=== PATIENT | male | born 1990 | race Caucasian/White ===

== ENCOUNTER 2022-05-11 14:45 | Emergency (ER) | payer MEDICAID ==
[2022-05-11] MEDS ORDERED: Sodium Chloride 0.9% 10 ML Syringe FLUSH PRN (18:52)
[2022-05-11] MEDS ORDERED: Sodium Chloride 0.9% 1,000 ML IV ONE (18:52)
[2022-05-11] MEDS ORDERED: Ondansetron 4 MG/2 ML SDV IVPUSH ONE (20:06)
[2022-05-11 20:27] LABS: ESTIMATED GFR 121 mL/min (>60)
[2022-05-11] MEDS ORDERED: QUEtiapine 100 MG Tab PO SCH (21:00)
[2022-05-11] MEDS ORDERED: risperiDONE 1 MG Tab PO ONE (21:50)
== END 2022-05-11 22:35 | disposition home or self-care (01) ==
LOC: JD.ED 14:45
DX: F10.10 Alcohol abuse, uncomplicated (principal); F17.210 Nicotine dependence, cigarettes, uncomplicated; Z91.09 Other allergy status, other than to drugs and biological substances; Z79.899 Other long term (current) drug therapy
CPT/HCPCS: 36415; 80053; 80307; 85025; 96361; 96374; 99284; A9270; J2405; J3490; J7030

== ENCOUNTER 2022-10-23 20:46 | Emergency (ER) | payer MEDICARE, MEDICAID ==
[2022-10-23] MEDS ORDERED: QUEtiapine 100 MG Tab PO ONE (22:37)
[2022-10-23] MEDS ORDERED: Nicotine 21 MG/24 Hr Patch TRDERM ONE (23:07)
== END 2022-10-23 23:25 | disposition home or self-care (01) ==
LOC: JD.ED 20:46
DX: F10.929 Alcohol use, unspecified with intoxication, unspecified (principal); Y90.0 Blood alcohol level of less than 20 mg/100 ml; Z91.048 Other nonmedicinal substance allergy status
CPT/HCPCS: 36415; 80053; 80143; 80179; 80306; 80307; 84443; 85007; 85027; 93005; 99284; A9270

== ENCOUNTER 2024-02-14 20:09 | Emergency (ER) | payer MEDICARE, MEDICAID ==
[2024-02-14] MEDS ORDERED: Lidocaine 1% 5 ML VIAL INJECT ONE (21:11)
[2024-02-14] MEDS ORDERED: Lidocaine 1% 10 ML MDV ONE (21:24)
[2024-02-14] MEDS: Amoxicillin/Clavulanate K 875-125 MG Tab PO ONE (21:51)
== END 2024-02-14 21:54 | disposition home or self-care (01) ==
LOC: JD.ED 20:09
DX: K04.7 Periapical abscess without sinus (principal); K02.9 Dental caries, unspecified; Z91.048 Other nonmedicinal substance allergy status; Z79.899 Other long term (current) drug therapy
CPT/HCPCS: 64400; 99282-25; A9270-GY

== ENCOUNTER 2024-02-14 23:34 | Emergency (ER) | payer MEDICARE, MEDICAID ==
[2024-02-14] MEDS: Acetaminophen 325 MG Tab PO ONE (23:53)
[2024-02-14] MEDS: Ketorolac 15 MG/ML SDV IM ONE (23:54)
== END 2024-02-15 00:51 | disposition home or self-care (01) ==
LOC: JD.ED 23:34
DX: K02.9 Dental caries, unspecified (principal); R45.6 Violent behavior; Z91.048 Other nonmedicinal substance allergy status; Z79.899 Other long term (current) drug therapy
CPT/HCPCS: 96372; 99283; A9270; J1885